=== PATIENT | female | born 1995 | race Caucasian/White ===

== ENCOUNTER 2020-09-09 11:10 | Emergency (ER) | payer MEDICAID ==
[~2020-09-09] VITALS: Ht 167.6 cm; Wt 108.1 kg
--- NOTE | 2020-09-09 11:22 | NUR ---
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
[2020-09-09] MEDS ORDERED: IBUPROFEN 600 MG TABLET PO ONE (12:30)
[2020-09-09] MEDS ORDERED: IBUPROFEN 600 MG TABLET ONE (12:40)
[2020-09-09 13:09] VITALS: BP 117/62
== END 2020-09-09 13:10 | disposition home or self-care (01) ==
LOC: ED 12:30
DX: R07.89 Other chest pain (principal); R94.31 Abnormal electrocardiogram [ECG] [EKG]
CPT/HCPCS: 71045; 93005; 99283